=== PATIENT | female | born 1975 | race Caucasian/White ===

== ENCOUNTER 2017-06-01 17:43 | Emergency (ER) | payer OTHER ==
[2017-06-01 17:52] VITALS: TEMP 98
[2017-06-01] MEDS ORDERED: SODIUM CHLORIDE 0.9% 1,000 ML IV STA (18:38)
[2017-06-01] MEDS ORDERED: PANTOPRAZOLE 40 MG/10 ML VIAL IVP STA (18:38)
[2017-06-01] MEDS ORDERED: MAG HYDROX/AL HYDROX/SIMETH 30 ML, HYOSCYAMINE ELIXIR 10 ML, CIMETIDINE HCL 300 MG PO STA ×3 (18:38)
[2017-06-01] MEDS ORDERED: ONDANSETRON 4 MG/2 ML VIAL IVP STA (18:38)
--- NOTE | 2017-06-01 18:59 | ED ---
Abdominal Pain HPI - General Chief Complaint: Abdominal Pain Stated Complaint: Back/abd pain vomiting Time Seen by Provider: 06/01/17 18:23 Source: patient, RN notes reviewed, old records reviewed Mode of arrival: ambulatory Limitations: no limitations - History of Present Illness Initial Comments: 41-year-old female presents for instrumentation complaint of epigastric abdominal pain today. She's had some episodes of right shoulder pain and back pain earlier in the week. She states that she has had no fever or chills. No vomiting. She does have history of GERD and relates that she may have the onset of pain to the GERD. She states that when she is having the shoulder. She thought she should get a massage and should Motrin. She reports that this did not help with his right shoulder pain. Patient denies any family history of gallbladder disease that she is aware of. She reports that she feels that she has pressure in her epigastric region. - Related Data Home Medications Medication Instructions Recorded Confirmed Acetaminophen [Tylenol Extra 1,000 mg PO BID PRN 06/01/17 06/01/17 Strength] Ibuprofen [Motrin] 800 mg PO TID PRN 06/01/17 06/01/17 Ranitidine HCl [Zantac] 75 mg PO HS PRN 06/01/17 06/01/17 Venlafaxine HCl [Effexor XR] 225 mg PO DAILY 06/01/17 06/01/17 Allergies Allergy/AdvReac Type Severity Reaction Status Date / Time No Known Allergies Allergy Verified 06/01/17 18:50 Review of Systems ROS Statement: Those systems with pertinent positive or pertinent negative responses have been documented in the HPI. ROS Other: All systems not noted in ROS Statement are negative. Past Medical History Past Medical History: No Reported History Additional Past Medical History / Comment(s): uti/ kidney infections History of Any Multi-Drug Resistant Organisms: None Reported Past Surgical History: No Surgical Hx Reported Past Psychological History: Anxiety, Depression Smoking Status: Never smoker Past Alcohol Use History: Rare Past Drug Use History: None Reported General Exam - General Exam Comments Initial Comments: 41-year-old female. No distress. Limitations: no limitations General appearance: alert, in no apparent distress Head exam: Present: atraumatic, normocephalic, normal inspection Eye exam: Present: normal appearance, PERRL, EOMI. Absent: scleral icterus, conjunctival injection, periorbital swelling ENT exam: Present: normal exam, mucous membranes moist Neck exam: Present: normal inspection. Absent: tenderness, meningismus, lymphadenopathy Respiratory exam: Present: normal lung sounds bilaterally. Absent: respiratory distress, wheezes, rales, rhonchi, stridor Cardiovascular Exam: Present: regular rate, normal rhythm, normal heart sounds. Absent: systolic murmur, diastolic murmur, rubs, gallop, clicks GI/Abdominal exam: Present: soft, normal bowel sounds. Absent: distended, guarding, rebound, rigid Back exam: Present: normal inspection Neurological exam: Present: alert, oriented X3, CN II-XII intact Course Vital Signs 06/01/17 06/01/17 17:49 20:14 Temperature 98.0 F Pulse Rate 75 71 Respiratory 18 16 Rate Blood Pressure 128/71 114/57 O2 Sat by Pulse 100 100 Oximetry Medical Decision Making - Medical Decision Making This patient is a 42-year-old female presents emergency Department chief complaint of right upper quadrant abdominal pain read towards her back epigastric pain. Patient states that it's been a dull ache. She has no specific abdominal tenderness at this time. Patient was given IV fluids and laboratory obtained. She does have history of GERD. I did give the patient a GI cocktail. She does have some mild improvement with that. Patient states that after IV Toradol her pain is diminished as well. She did receive a gallbladder ultrasound. It is positive for multiple stones. Patient reported these results. At this time she'll be diagnosed with biliary colic. She has a normal liver enzymes. Normal white blood cell count. As the importance of changing her diet no greasy or fatty foods. With normal lab work and normal vital signs patient to follow up outpatient only with surgery. Given a referral for the on-call surgeons. Patient understands treatment plan will comply. Strict return parameters were discussed. - Lab Data Result diagrams: 06/01/17 18:45 06/01/17 18:45 Lab Results 06/01/17 06/01/17 06/01/17 Range/Units 18:45 18:45 18:45 WBC 5.3 (3.8-10.6) k/uL RBC 4.67 (3.80-5.40) m/uL Hgb 11.5 (11.4-16.0) gm/dL Hct 35.7 (34.0-46.0) % MCV 76.4 L (80.0-100.0) fL MCH 24.5 L (25.0-35.0) pg MCHC 32.1 (31.0-37.0) g/dL RDW 14.4 (11.5-15.5) % Plt Count 387 (150-450) k/uL Neutrophils % 52 % Lymphocytes % 41 % Monocytes % 5 % Eosinophils % 0 % Basophils % 1 % Neutrophils # 2.7 (1.3-7.7) k/uL Lymphocytes # 2.1 (1.0-4.8) k/uL Monocytes # 0.3 (0-1.0) k/uL Eosinophils # 0.0 (0-0.7) k/uL Basophils # 0.0 (0-0.2) k/uL Hypochromasia Slight Sodium 140 (137-145) mmol/L Potassium 3.9 (3.5-5.1) mmol/L Chloride 103 (98-107) mmol/L Carbon Dioxide 23 (22-30) mmol/L Anion Gap 14 mmol/L BUN 9 (7-17) mg/dL Creatinine 0.77 (0.52-1.04) mg/dL Est GFR (CKD-EPI)AfAm >90 (>60 ml/min/1.73 sqM) Est GFR (CKD-EPI)NonAf >90 (>60 ml/min/1.73 sqM) Glucose 79 (74-99) mg/dL Calcium 9.6 (8.4-10.2) mg/dL Total Bilirubin 0.3 (0.2-1.3) mg/dL AST 16 (14-36) U/L ALT 27 (9-52) U/L Alkaline Phosphatase 61 (38-126) U/L Total Protein 7.4 (6.3-8.2) g/dL Albumin 4.4 (3.5-5.0) g/dL Amylase 54 (30-110) U/L Lipase 37 (23-300) U/L Urine Color Light Yellow Urine Appearance Cloudy H (Clear) Urine pH 5.0 (5.0-8.0) Ur Specific [place] 1.010 (1.001-1.035) Urine Protein Negative (Negative) Urine Glucose (UA) Negative (Negative) Urine Ketones Trace H (Negative) Urine Blood Negative (Negative) Urine Nitrite Negative (Negative) Urine Bilirubin Negative (Negative) Urine Urobilinogen <2.0 (<2.0) mg/dL Ur Leukocyte Esterase Trace H (Negative) Urine RBC 1 (0-5) /hpf Urine WBC 3 (0-5) /hpf Ur Squamous Epith Cells 5 H (0-4) /hpf Urine Bacteria Occasional H (None) /hpf Urine Mucus Rare H (None) /hpf Urine Yeast (Budding) Occasional H (None) /hpf - Radiology Data Radiology results: report reviewed The gallbladder shows multiple polyps seen along the anterior wall some mobile stones within the next borderline wall thickening. There are gallstones or gallbladder polyps. No evidence of dilated ducts. Disposition Clinical Impression: Biliary colic, Gallbladder polyp Disposition: HOME SELF-CARE Condition: Good Instructions: Biliary Colic (ED) Additional Instructions: Patient is a follow-up with surgeon within the next 2-3 days. Patient should avoid fatty greasy foods. Return to emergency department promptly any fever or chills or unable to tolerate any foods or liquids. Referrals: Lisa Lu MD [Primary Care Provider] - 1-2 days Tracy Torrez DO [Doctor of Osteopathic Medicine] - 1-2 days Jimmy Altman MD [STAFF PHYSICIAN] - 1-2 days Time of Disposition: 20:14
[2017-06-01 19:15] LABS: Basophils % (A) 1 %; Eosinophils % (A) 0 %; HCT 35.7 % (34.0-46.0); HGB 11.5 gm/dL (11.4-16.0); Hypochromasia Slight; Lymphocytes # (A) 2.1 k/uL (1.0-4.8); Lymphocytes % (A) 41 %; MCH 24.5 pg (25.0-35.0); MCHC 32.1 g/dL (31.0-37.0); MCV 76.4 fL (80.0-100.0); Mean Platelet Volume 7.1; Monocytes # (A) 0.3 k/uL (0-1.0); Monocytes % (A) 5 %; Neutrophils # (A) 2.7 k/uL (1.3-7.7); Neutrophils % (A) 52 %; Platelet Count 387 k/uL (150-450); RBC 4.67 m/uL (3.80-5.40); RDW 14.4 % (11.5-15.5); WBC 5.3 k/uL (3.8-10.6)
[2017-06-01 19:25] LABS: ALT 27 U/L (9-52); AST 16 U/L (14-36); Albumin 4.4 g/dL (3.5-5.0); Alkaline Phosphatase 61 U/L (38-126); Amylase 54 U/L (30-110); Anion Gap 14 mmol/L; Blood Urea Nitrogen 9 mg/dL (7-17); Calcium 9.6 mg/dL (8.4-10.2); Carbon Dioxide 23 mmol/L (22-30); Chloride 103 mmol/L (98-107); Glucose 79 mg/dL (74-99); Lipase 37 U/L (23-300); Potassium 3.9 mmol/L (3.5-5.1); Sodium 140 mmol/L (137-145); Total Bilirubin 0.3 mg/dL (0.2-1.3); Total Protein 7.4 g/dL (6.3-8.2)
[2017-06-01 19:29] LABS: Appearance,Urine Cloudy (Clear); Bacteria,Urine Occasional /hpf; Bilirubin,Urine Negative (Negative); Blood,Urine Negative (Negative); Budding Yeast,Urine Occasional /hpf; Color,Urine Light Yellow; Glucose,Urine (UA) Negative (Negative); Ketones,Urine Trace (Negative); Leukocyte Esterase,Urine Trace (Negative); Mucus,Urine Rare /hpf; Nitrite,Urine Negative (Negative); Protein,Urine Negative (Negative); RBC,Urine 1 /hpf (0-5); Squamous Epithelial Cell,Urine 5 /hpf (0-4); Urobilinogen,Urine <2.0 mg/dL (<2.0); WBC,Urine 3 /hpf (0-5)
--- NOTE | 2017-06-01 19:46 | US ---
EXAMINATION TYPE: US gallbladder DATE OF EXAM: 06/01/2017 COMPARISON: NONE CLINICAL HISTORY: Pain. acid reflux, abd pain EXAM MEASUREMENTS: Liver Length: 15.3 cm Gallbladder Wall: 0.3 cm CBD: 0.3 cm Right Kidney: 9.1 x 3.8 x 4.2 cm Pancreas: unable to see due to bowel gas Liver: intercostal imaging, wnl Gallbladder: multiple polyps seen along anterior wall, some mobile stones seen within neck, borderli ne wall thickening Evidence for sonographic Higuera's sign: no CBD: wnl Right Kidney: wnl No focal liver defect. IMPRESSION: There are gallstones and gallbladder polyps. No dilated ducts.
[2017-06-01 20:15] VITALS: BP 114/57; PULSE 71; RESP 16
== END 2017-06-01 20:28 | disposition home or self-care (01) ==
LOC: EC 17:43
DX: K80.70 Calculus of gallbladder and bile duct without cholecystitis without obstruction (principal); M25.511 Pain in right shoulder; F32.9 Major depressive disorder, single episode, unspecified; F41.9 Anxiety disorder, unspecified; Z79.899 Other long term (current) drug therapy
CPT/HCPCS: 99284; 96374; 96375; 96361 ×2; 36415; 80053; 82150; 83690; 85025; 81001; 76705; J2405; C9113

== ENCOUNTER → 2018-01-04 | Outpatient (CLI) | payer OTHER ==
--- NOTE | 2018-01-04 11:02 | FL ---
EXAMINATION TYPE: FL UGI air DATE OF EXAM: 01/04/2018 COMPARISON: NONE HISTORY: Acid reflux for 1.5 years with episodic vomiting estimated once per week, recently started o n reflux medication. TECHNIQUE: A double contrast UGI study is performed. A total of 50 seconds of fluoroscopic time is u tilized during procedure. 61 spot images are saved. FINDINGS: [employer] image of the abdomen shows no gross abnormality. The esophagus shows satisfactory motility and emptying into the stomach. No evidence of diverticulum or stricture noted. There is small to borderline moderate size sliding-type hiatal hernia identified during real-time performance. The stomach shows satisfactory distensibility, peristalsis, and mucosal folds. No evidence of any ma ss or ulcer disease. Several abscesses of gastroesophageal reflux up through distal one half of the e sophagus are noted during performance of study. The duodenal bulb, sweep, and proximal small bowel lo ops are unremarkable. IMPRESSION: Small sliding-type hiatal hernia with moderate gastroesophageal reflux.
== END ==
LOC: RADFLWHC 08:10
PROVIDERS: ATTEND Family Medicine
DX: K21.9 Gastro-esophageal reflux disease without esophagitis (principal); K44.9 Diaphragmatic hernia without obstruction or gangrene
CPT/HCPCS: 74246

== ENCOUNTER 2018-04-03 08:14 | Day surgery (SDC) | payer OTHER ==
[2018-03-30 09:02] VITALS: BMI 29.2
[~2018-04-03 08:14] MED LIST: LACTATED RINGERS 1,000 ML IV SCH; LIDOCAINE 1% 20 ML VIAL (10MG/ML) FOR IV START INTRADERMA PRN
[2018-04-03 08:45] VITALS: TEMP 98.7
[2018-04-03] MEDS ORDERED: LIDOCAINE 1% INJ 10MG/ML (20 ML MDV) ONE (09:18)
[2018-04-03] MEDS ORDERED: PROPOFOL 10 MG/ML 20 ML VIAL IV ONE (09:18)
--- NOTE | 2018-04-03 09:24 | P.GSHP ---
History of Present Illness H&P Date: 04/03/18 Chief Complaint: GERD This a 42-year-old female with history of GERD. Patient has had a previous esophagram shows evidence of a hiatal hernia and reflux. She also history of gallstones. Past Medical History Past Medical History: GERD/Reflux Additional Past Medical History / Comment(s): FREQ UTI/ kidney infections. CHOLELITHIASIS. HIATAL HERNIA History of Any Multi-Drug Resistant Organisms: None Reported Past Surgical History: No Surgical Hx Reported Additional Past Surgical History / Comment(s): NASAL POLYPS. Past Anesthesia/Blood Transfusion Reactions: No Reported Reaction Smoking Status: Never smoker - Past Family History Mother Family Medical History: No Reported History Medications and Allergies Home Medications Medication Instructions Recorded Confirmed Type Acetaminophen [Tylenol Extra 1,000 mg PO BID PRN 06/01/17 04/03/18 History Strength] Ranitidine HCl [Zantac] 75 mg PO DAILY PRN 06/01/17 04/03/18 History Venlafaxine HCl [Effexor XR] 225 mg PO HS 06/01/17 04/03/18 History Omeprazole [PriLOSEC] 40 mg PO DAILY 02/16/18 04/03/18 History Control 1 each PO DAILY 03/30/18 04/03/18 History Allergies Allergy/AdvReac Type Severity Reaction Status Date / Time No Known Allergies Allergy Verified 04/03/18 08:35 Surgical - Exam Vital Signs Temp Pulse Resp BP Pulse Ox 98.7 F 96 15 125/58 99 04/03/18 08:41 04/03/18 08:41 04/03/18 08:41 04/03/18 08:41 04/03/18 08:41 - General well developed, no distress - Eyes PERRL - ENT normal pinna - Neck no masses - Respiratory normal expansion - Cardiovascular Rhythm: regular - Abdomen Abdomen: soft, non tender Assessment and Plan Assessment: GERD. We'll perform EGD.
--- NOTE | 2018-04-03 09:34 | P.OP ---
Date of Procedure: 04/03/18 Preoperative Diagnosis: GERD Postoperative Diagnosis: Antral gastritis Hiatal hernia Mild esophagitis Procedure(s) Performed: EGD Anesthesia: MAC Surgeon: Jimmy Altman Pathology: other (Antrum, esophagus) Condition: stable Disposition: PACU Description of Procedure: The patient's placed on the endoscopy table in the lateral position. She received IV sedation. The gastroscope placed oropharynx and passed in the esophagus and into the stomach. Scope was then placed through the pylorus. The first and second portion of the duodenum appeared normal. Scope was then brought back the antrum this. Mildly inflamed. The scope was then retroflexed and the remainder of the stomach appeared normal. There was a moderate size hiatal hernia. The GE junction was at 38 cm. The distal esophagus appeared mildly inflamed a biopsies performed. The proximal esophagus appeared normal. Scope withdrawn for patient.
[2018-04-03 09:35] VITALS: RESP 16
[2018-04-03 09:50] VITALS: BP 110/75; PULSE 74
== END 2018-04-03 10:14 | disposition home or self-care (01) ==
LOC: ORWHC2ENDO 08:14
PROVIDERS: ATTEND Surgery
DX: K29.50 Unspecified chronic gastritis without bleeding (principal); K21.0 Gastro-esophageal reflux disease with esophagitis; K44.9 Diaphragmatic hernia without obstruction or gangrene; Z87.440 Personal history of urinary (tract) infections; Z79.899 Other long term (current) drug therapy; Z79.3 Long term (current) use of hormonal contraceptives
CPT/HCPCS: 81025; 88305; 43239; J2001; J2704

== ENCOUNTER 2018-04-18 06:44 | Day surgery (SDC) | payer OTHER ==
[2018-04-14 14:34] VITALS: BMI 29.2
[~2018-04-18 06:44] MED LIST changes: +DEXAMETHASONE SOD PHOSPHATE 10 MG/ML 1 ML VIAL IV ONE; +HEPARIN SODIUM,PORCINE 5,000 UNIT/ML 1 ML VIAL SQ ONE; +ONDANSETRON 4 MG/2 ML VIAL IVP ONE; +SCOPOLAMINE 1.5MG/72HR PATCH TRANSDERM ONE; +ceFAZolin IN SWFI 2 GM/20 ML SYRINGE IVP ONE
[2018-04-18 07:03] VITALS: RESP 16
[2018-04-18] MEDS ORDERED: BUPIVACAINE-EPI 0.5%-1:200,000 10 ML VIAL SQ ONE ×2 (07:50→08:24)
[2018-04-18] MEDS ORDERED: PROPOFOL 10 MG/ML 20 ML VIAL IV ONE (07:58)
[2018-04-18] MEDS ORDERED: VECURONIUM 10 MG VIAL IV ONE (07:58)
[2018-04-18] MEDS ORDERED: LIDOCAINE 1% INJ 10MG/ML (20 ML MDV) ONE (07:58)
[2018-04-18] MEDS ORDERED: fentaNYL (PF) 50 MCG/ML 2 ML AMP ONE (07:58)
[2018-04-18] MEDS ORDERED: ePHEDrine SULFATE/0.9% NACL/PF 50 MG/5 ML SYRINGE IV ONE (07:58)
[2018-04-18] MEDS ORDERED: SUCCINYLCHOLINE CHLORIDE 100 MG/5 ML SYR IV ONE (07:58)
[2018-04-18] MEDS ORDERED: MIDAZOLAM 2 MG/2 ML VIAL ONE (07:58)
--- NOTE | 2018-04-18 08:01 | P.GSHP ---
History of Present Illness H&P Date: 04/18/18 Chief Complaint: Right upper quadrant pain This a 42-year-old female who's had complete the right upper quadrant pain. Her recent ultrasound shows evidence of cholelithiasis and gallbladder wall polyps. She presents today for laparoscopic cholecystectomy. Past Medical History Past Medical History: GERD/Reflux Additional Past Medical History / Comment(s): FREQ UTI/ kidney infections. CHOLELITHIASIS. HIATAL HERNIA History of Any Multi-Drug Resistant Organisms: None Reported Past Surgical History: No Surgical Hx Reported Additional Past Surgical History / Comment(s): NASAL POLYPS. Past Anesthesia/Blood Transfusion Reactions: No Reported Reaction Smoking Status: Never smoker - Past Family History Mother Family Medical History: No Reported History Medications and Allergies Home Medications Medication Instructions Recorded Confirmed Type Ranitidine HCl [Zantac] 75 mg PO DAILY PRN 06/01/17 04/18/18 History Venlafaxine HCl [Effexor XR] 225 mg PO HS 06/01/17 04/18/18 History Omeprazole [PriLOSEC] 40 mg PO DAILY 02/16/18 04/18/18 History Control 1 each PO DAILY 03/30/18 04/18/18 History Allergies Allergy/AdvReac Type Severity Reaction Status Date / Time No Known Allergies Allergy Verified 04/14/18 14:30 Surgical - Exam Vital Signs Temp Pulse Resp BP Pulse Ox 97.4 F L 109 H 16 119/64 99 04/18/18 06:59 04/18/18 06:59 04/18/18 06:59 04/18/18 06:59 04/18/18 06:59 - General well developed, well nourished, no distress - Eyes PERRL - ENT normal pinna - Neck no masses - Respiratory normal expansion - Cardiovascular Rhythm: regular - Abdomen Abdomen: soft, non tender Assessment and Plan Assessment: Cholelithiasis Gallbladder wall polyp We'll perform laparoscopic cholecystectomy.
--- NOTE | 2018-04-18 08:41 | P.OP ---
Date of Procedure: 04/18/18 Preoperative Diagnosis: Cholecystitis Postoperative Diagnosis: Cholecystitis Procedure(s) Performed: Laparoscopic cholecystectomy Anesthesia: SHANE Surgeon: Jimmy lAtman Estimated Blood Loss (ml): 5 Pathology: other (Gallbladder) Condition: stable Disposition: PACU Description of Procedure: The patient was placed on the operating table. The patient received a general endotracheal tube anesthesia. The patients abdomen was prepped and draped in the usual sterile fashion. Through an infraumbilical stab incision, the fascia of the anterior abdominal wall was grasped with a pair of Kochers and then the Veress needle was placed in the peritoneal cavity. Position of the Veress needle was confirmed with positive drop test. The abdomen was then insufflated. After adequate insufflation, the 10 mm trocar was placed in the peritoneal cavity. Following this the laparoscope was placed in the peritoneal cavity. The patient was placed in the head-up, right side up position and then a 5 mm trocar was placed in the right lateral and right subcostal position under direct visualization. A 8 mm trocar was placed in the epigastric position. The gallbladder was grasped in the fundus and infundibulum. Traction on the gallbladder was placed in the lateral and the cephalad positions. The triangle of Calot was visualized.. The cystic duct was bluntly dissected until the union of the cystic duct and common bile duct was seen. The cystic duct was then divided and sealed with the Harmonic scissors. A PDS Endoloop was then placed throughout the cystic duct stump. The cystic artery divided and sealed with the Harmonic scissors. The gallbladder was then removed from the liver bed using Harmonic scissors. The gallbladder was then extracted through the epigastric port site. Operative field was checked for any bleeding spots and Harmonic scissors was used to coagulate the liver bed. The abdomen was irrigated. The trocars were removed. The skin was closed using interrupted 3-0 Vicryl suture. Dermabond dressing were applied. The patient tolerated the procedure well.
[2018-04-18] MEDS: HYDROmorphone 0.5 MG/0.5 ML SYRINGE IVP PRN ×4 (09:05→09:35)
[2018-04-18 09:08] VITALS: TEMP 97.6
[2018-04-18] MEDS ORDERED: LACTATED RINGERS 1,000 ML IV ONE (09:47)
[2018-04-18] MEDS ORDERED: HYDROcodone/APAP 7.5-325MG 1 EACH TAB PO ONE (10:03)
[2018-04-18 10:39] VITALS: BP 111/74; PULSE 95
== END 2018-04-18 11:24 | disposition home or self-care (01) ==
LOC: OR 06:44
PROVIDERS: ATTEND Surgery
DX: K80.12 Calculus of gallbladder with acute and chronic cholecystitis without obstruction (principal); K44.9 Diaphragmatic hernia without obstruction or gangrene; K21.9 Gastro-esophageal reflux disease without esophagitis; F32.9 Major depressive disorder, single episode, unspecified; Z87.440 Personal history of urinary (tract) infections; Z79.899 Other long term (current) drug therapy; Z79.3 Long term (current) use of hormonal contraceptives
CPT/HCPCS: 81025; 88304; 47562; J2250; J1644; J1100; J2405; J2001; J3010; J0330; J2704; J1170; J0690

== ENCOUNTER 2018-05-08 09:17 | Observation (INO) | payer OTHER ==
[2018-05-04 11:16] VITALS: BMI 29.2
[~2018-05-08 09:17] MED LIST changes: +HYDROmorphone 0.5 MG/0.5 ML SYRINGE IVP PRN; -LACTATED RINGERS 1,000 ML IV SCH; +MIDAZOLAM (PF) 2 MG/2 ML VIAL IV PRN; -SCOPOLAMINE 1.5MG/72HR PATCH TRANSDERM ONE; -ceFAZolin IN SWFI 2 GM/20 ML SYRINGE IVP ONE; +fentaNYL (PF) 50 MCG/ML 2 ML AMP IV PRN
[2018-05-08] MEDS: LACTATED RINGERS 1,000 ML IV SCH ×2 (09:59→14:18)
[2018-05-08] MEDS ORDERED: ONDANSETRON 4 MG/2 ML VIAL IVP ONE (10:06)
[2018-05-08] MEDS ORDERED: DEXAMETHASONE SOD PHOSPHATE 10 MG/ML 1 ML VIAL IV ONE (10:07)
--- NOTE | 2018-05-08 10:43 | P.GSHP ---
History of Present Illness H&P Date: 05/08/18 Chief Complaint: GERD This is a 42-year-old female who's had lifetime problems of GERD. Patient refractory to medical therapy. The patient has had long-standing problems with reflux esophagitis. The patient underwent recent EGD is found have evidence of esophagitis. Patient has been well informed on the procedure of laparoscopic Berny fundoplication. The patient is aware the risk of the conversion to the open procedure, risk of injury to the stomach, liver and spleen. The patient is also a risk of recurrent GERD and dysphagia symptoms. The patient understands there is a postoperative diet of full liquids for 2 weeks after surgery. Past Medical History Past Medical History: GERD/Reflux Additional Past Medical History / Comment(s): FREQ UTI/ kidney infections, hiatal hernia History of Any Multi-Drug Resistant Organisms: None Reported Past Surgical History: Cholecystectomy Additional Past Surgical History / Comment(s): NASAL POLYPS, lap [place] 04-18-18 Past Anesthesia/Blood Transfusion Reactions: No Reported Reaction Smoking Status: Never smoker - Past Family History Mother Family Medical History: No Reported History Medications and Allergies Home Medications Medication Instructions Recorded Confirmed Type Ranitidine HCl [Zantac] 75 mg PO DAILY PRN 06/01/17 05/08/18 History Venlafaxine HCl [Effexor XR] 225 mg PO HS 06/01/17 05/08/18 History Omeprazole [PriLOSEC] 40 mg PO DAILY 02/16/18 05/08/18 History Allergies Allergy/AdvReac Type Severity Reaction Status Date / Time No Known Allergies Allergy Verified 05/08/18 09:58 Surgical - Exam Vital Signs Temp Pulse Resp BP Pulse Ox 98.4 F 67 16 105/54 98 05/08/18 09:47 05/08/18 09:47 05/08/18 09:47 05/08/18 09:47 05/08/18 09:47 - General well developed, well nourished, no distress - Eyes PERRL - ENT normal pinna - Neck no masses - Respiratory normal expansion - Cardiovascular Rhythm: regular - Abdomen Abdomen: soft, non tender Assessment and Plan Assessment: GERD. We'll perform laparoscopic Berny fundoplication
[2018-05-08] MEDS: ceFAZolin IN SWFI 2 GM/20 ML SYRINGE IVP ONE ×2 (11:00→11:22)
[2018-05-08] MEDS ORDERED: NEOSTIGMINE 1 MG/ML 10 ML VIAL ONE (11:01)
[2018-05-08] MEDS ORDERED: PROPOFOL 10 MG/ML 20 ML VIAL IV ONE (11:01)
[2018-05-08] MEDS ORDERED: MIDAZOLAM 2 MG/2 ML VIAL ONE (11:01)
[2018-05-08] MEDS ORDERED: GLYCOPYRROLATE 0.2 MG/ML 2 ML VIAL ONE (11:01)
[2018-05-08] MEDS ORDERED: BUPIVACAINE-EPI 0.5%-1:200,000 10 ML VIAL SQ ONE ×2 (11:01→11:32)
[2018-05-08] MEDS ORDERED: SUCCINYLCHOLINE CHLORIDE 100 MG/5 ML SYR IV ONE (11:01)
[2018-05-08] MEDS ORDERED: LIDOCAINE 1% INJ 10MG/ML (20 ML MDV) ONE (11:01)
[2018-05-08] MEDS ORDERED: ROCURONIUM BROMIDE 10 MG/ML 10 ML VIAL IV ONE (11:01)
[2018-05-08] MEDS ORDERED: fentaNYL (PF) 50 MCG/ML 2 ML AMP ONE (11:01)
[2018-05-08] MEDS ORDERED: LACTATED RINGERS 1,000 ML IV ONE (11:53)
[2018-05-08] MEDS ORDERED: ONDANSETRON 4 MG/2 ML VIAL IVP PRN (12:07)
--- NOTE | 2018-05-08 12:11 | P.OP ---
Date of Procedure: 05/08/18 Preoperative Diagnosis: GERD Postoperative Diagnosis: GERD Procedure(s) Performed: Laparoscopic Berny fundoplication Anesthesia: SHANE Surgeon: Jimmy Altman Estimated Blood Loss (ml): 5 Pathology: none sent Condition: stable Disposition: PACU Description of Procedure: Patelhe patient was placed on the operating table in the supine position. The patient received general anesthesia. And was placed in dorsal lithotomy position. The patient was prepped and draped in the usual sterile fashion. The skin incision sites were anesthetized with 1% local Xylocaine. The skin was incised in the left periumbilical area and then using a blade less 5 mm trocar under direct visualization panel cavity was entered. After adequate insufflation the laparoscope was then placed into the peritoneal cavity. Next a 5 mm trochars placed in the right epigastric position. Another 5 millimeter trocar the right lateral position. Another 5 millimeter trocar in the left lateral position a 5 mm trocar is placed in the left epigastric position. And then the initial 5 mm trocar was exchanged for a 10 mm trocar. The left lateral lobe liver was retracted. The hernia was seen. The crural defect was then dissected using the Harmonic scissors device. A 360 crural dissection was performed the esophagus stomach was reduced back into the peritoneal Cavity. The crural defect was then closed using 2-0 Ethibond suture. Next the fundus of the stomach was mobilized using the [place] scissors device. and then a 58-Pashto bougie dilator was placed oropharynx passed into the esophagus and stomach the fundal plication wrap was then performed by grasping the fundus posteriorly and bringing it around the esophagus and stomach fundoplication was then performed using 2-0 Ethibond suture. Care was taken that the fundal location rested over top of the intra-abdominal esophagus. There was no injury seen to the stomach or esophagus. The dilator was then withdrawn. The abdomen was irrigated there is no bleeding seen. The trochars were then withdrawn and then skin incision sites were closed using 3-0 Monocryl suture Steri-Strips are applied. Patient thought procedure well and sent to recovery room in stable condition.
[2018-05-08] MEDS ORDERED: HYDROmorphone 1 MG/ML 1 ML SYRINGE IVP ONE ×2 (12:20→12:26)
[2018-05-08] MEDS ORDERED: MEPERIDINE 50 MG/ML SYRINGE IVP ONE (12:35)
[2018-05-08] MEDS: D5-0.45% NACL WITH KCL 20MEQ/L 1,000 ML IV SCH ×2 (14:20→20:17)
--- NOTE | 2018-05-08 15:59 | FL ---
EXAMINATION TYPE: FL esophagus cervic/pharynx DATE OF EXAM: 05/08/2018 LIMITED UGI-ESOPHAGRAM: CLINICAL HISTORY: Anderson fundoplication TECHNIQUE: Limited esophagram is performed utilizing 20 oz of Omnipaque 350. A total of 32 seconds o f fluoroscopic time was utilized during procedure. Images: 10 FINDINGS: The patient swallowed contrast without difficulty or delay. Esophageal peristalsis and mo tility are within normal limits. There is good flow of contrast along the diaphragmatic hiatus into t he stomach, there is no evidence of contrast extravasation to suggest leak. Only moderate hesitancy p assing through the Anderson fundoplication is evident. No persistent hiatal hernia is seen. IMPRESSION: No evidence of leak or significant obstruction status post Anderson fundoplication surgery earlier today.
[2018-05-08] MEDS: HYDROmorphone 1 MG/ML 1 ML SYRINGE IVP PRN ×2 (16:17→20:16)
[2018-05-08] MEDS: METOCLOPRAMIDE 5 MG/ML 2 ML VIAL IVP SCH (17:09)
[2018-05-08] MEDS ORDERED: VENLAFAXINE HCL ER 75 MG CAP PO SCH (21:00)
[2018-05-08] MEDS: FAMOTIDINE 20 MG/2 ML VIAL IV SCH (21:14)
[2018-05-09] MEDS: METOCLOPRAMIDE 5 MG/ML 2 ML VIAL IVP SCH ×3 (00:07→08:50)
[2018-05-09] MEDS: HYDROmorphone 1 MG/ML 1 ML SYRINGE IVP PRN (02:56)
[2018-05-09] MEDS: D5-0.45% NACL WITH KCL 20MEQ/L 1,000 ML IV SCH ×2 (06:38→08:21)
[2018-05-09] MEDS: FAMOTIDINE 20 MG/2 ML VIAL IV SCH (08:21)
[2018-05-09] MEDS ORDERED: HYDROcodone/APAP 7.5-325MG 1 EACH TAB PO PRN (08:38)
[2018-05-09] MEDS: LACTATED RINGERS 1,000 ML IV SCH (08:49)
[2018-05-09 08:50] VITALS: BP 104/70; PULSE 90; RESP 16; TEMP 98.2
[2018-05-09] MEDS ORDERED: ENOXAPARIN 40 MG/0.4 ML SYRINGE SQ SCH (09:00)
--- NOTE | 2018-05-09 10:54 | P.DS ---
Providers Date of admission: 05/08/18 21:46 Expected date of discharge: 05/09/18 Attending physician: Jimmy Altman Consults: 05/08/18 12:07 Consult Physician Routine Consulting Provider: Mike Altman Consult Reason/Comments: Medical management Do you want consulting provider notified?: Yes Primary care physician: Mike Altman Hospital Course: 42-year-old female who underwent elective Berny fundoplication on . The patient is well postoperatively without any complications. esophagram was completed which was negative for evidence of leak or obstruction. Patient has been tolerating clear liquids. Her pain is tolerable. She has been up ambulating. She is stable for discharge home today. Please see EMR for further hospital course details. DISCHARGE DIAGNOSIS: 1. GERD 2. S/P Berny fundoplication Nurse practitioner note has been reviewed by physician. Signing provider agrees with the documented findings, assessment, and plan of care. Patient Condition at Discharge: Stable Plan - Discharge Summary Discharge Rx Participant: No New Discharge Prescriptions: New Docusate [Colace] 100 mg PO BID #30 capsule HYDROcodone/APAP 7.5-325MG [[place] 7.5-325] 1 tab PO Q4H PRN 3 Days #18 tab PRN Reason: Pain No Action Ranitidine HCl [Zantac] 75 mg PO DAILY PRN PRN Reason: Heartburn Venlafaxine HCl [Effexor XR] 225 mg PO HS Omeprazole [PriLOSEC] 40 mg PO DAILY Discharge Medication List Ranitidine HCl [Zantac] 75 mg PO DAILY PRN 06/01/17 [History] Venlafaxine HCl [Effexor XR] 225 mg PO HS 06/01/17 [History] Omeprazole [PriLOSEC] 40 mg PO DAILY 02/16/18 [History] Docusate [Colace] 100 mg PO BID #30 capsule 05/09/18 [Rx] HYDROcodone/APAP 7.5-325MG [[place] 7.5-325] 1 tab PO Q4H PRN 3 Days #18 tab 05/09 [Rx] Follow up Appointment(s)/Referral(s): Jimmy Altman MD [STAFF PHYSICIAN] - 05/23/18 1:45 pm Activity/Diet/Wound Care/Special Instructions: Continue diet as directed by physician until seen by physician. fluids are always encouraged.No driving while taking [place] No lifting/pushing/pullling over 10 pounds you may shower. No soaking or tub baths Very light activity until you are reevaluated at your follow up appointment with your surgeon. Call physician with any questions comments concerns worsening returning symptoms, fever 101.1, pain not controlled by pain medication prescribed, pus or smelly drainage coming from incision sites, not tolerating diet or fluids. Discharge Disposition: HOME SELF-CARE
--- NOTE | 2018-05-09 15:10 | PN ---
PROGRESS NOTE DATE OF SERVICE: 05/09/2018. CHIEF COMPLAINT: GERD, status post Berny fundoplasty. HISTORY OF PRESENT ILLNESS: This lady is doing well. She is going home this morning. She is not complaining of any chest pain, abdominal pain, fever and chills, nausea, vomiting, etc. PHYSICAL EXAM: Chest is clear. The cardiac exam is normal and the abdomen is soft, nontender. IMPRESSION: 1. Status post Berny fundoplasty. 2. Depression. PLAN: Home today and will see her in the office in several days for followup. MMODL / IJN: [id number] /
--- NOTE | 2018-05-09 15:12 | CONS ---
CONSULTATION CHIEF COMPLAINT: GERD. HISTORY OF PRESENT ILLNESS: This is another admission for this 42-year-old white female who was in for a Berny fundoplasty. She is otherwise healthy. She takes antidepressants has been using Zantac and Prilosec. REVIEW OF SYSTEMS: She has had no neurologic problems, headaches, change in vision or hearing, cough, hemoptysis, shortness of breath, chest pain, hypertension, murmurs, rheumatic fever, orthopnea, PND, hematemesis, melena, hematochezia, jaundice, hepatitis, hematuria, frequency, urgency, renal failure, diabetes, etc. Past medical history, family history, personal and social history are otherwise unremarkable and noncontributory. She is not allergic to any medication. She takes venlafaxine 225 mg once a day, Estarylla, Zantac 150 twice a day, Prilosec 20 mg twice a day. The remainder of her history is unremarkable. She does not smoke. PHYSICAL EXAM: Blood pressure is 120/80, pulse 86, respirations 14, she is afebrile. In general she appeared well developed, well nourished, in no acute distress. Skin color is normal, skin is warm, dry. Lymph nodes are not enlarged. Head, ears, eyes, nose, mouth, and throat are normal. Neck veins are not distended. Thyroid is not enlarged. Chest is clear. The cardiac exam is normal. Abdomen is soft, nontender. Extremities are normal. Neurologically she is intact. IMPRESSION: 1. GERD. 2. Major depression. RECOMMENDATIONS: None. MMODL / IJN: [id number] /
== END 2018-05-09 10:10 | disposition home or self-care (01) ==
LOC: OR 09:17 → 6PED 12:02 → OR 21:26 → 6PED 21:46
PROVIDERS: ADMIT Surgery; ATTEND Surgery
DX: K21.0 Gastro-esophageal reflux disease with esophagitis (principal); K44.9 Diaphragmatic hernia without obstruction or gangrene; Z90.49 Acquired absence of other specified parts of digestive tract; Z79.899 Other long term (current) drug therapy; Z87.440 Personal history of urinary (tract) infections; Z87.09 Personal history of other diseases of the respiratory system
CPT/HCPCS: 81025; 74210; 43280; G0378 ×2; J1644; J1100; J2765 ×2; J2175; J2405; J1650; J1170 ×2; J0690; Q9967

== ENCOUNTER 2021-08-28 09:59 | Emergency (ER) | payer OTHER ==
[2021-08-28 10:07] VITALS: RESP 16; TEMP 97.8
[2021-08-28] MEDS ORDERED: SODIUM CHLORIDE 0.9% 1,000 ML IV STA (10:23)
[2021-08-28] MEDS ORDERED: KETOROLAC 15 MG/ML 1 ML VIAL IVP STA (10:23)
--- NOTE | 2021-08-28 10:28 | ED ---
General Adult HPI - General Chief complaint: Back Pain/Injury Stated complaint: Back Pain Time Seen by Provider: 08/28/21 10:15 Source: patient, RN notes reviewed, old records reviewed Mode of arrival: wheelchair Limitations: no limitations - History of Present Illness Initial comments: 46-year-old well-appearing female presents to the emergency room with complaints of lower abdominal pain that awoke her at 3:30 this morning. Patient states that the pain wraps around into her lower back and goes down to bilateral upper legs. She denies any fevers, no nausea vomiting or diarrhea. Last normal bowel movement yesterday. She states that she has never had this type of pain before. She denies any injury. She denies any history of cancers, no drug abuse. -: hour(s) (7) Location: back (Low backlower), abdomen (Bilateral lower abdominal), left, right, lower extremity (upper legs) Severity scale (1-10): 10 Consistency: constant Improves with: immobilization Worsens with: movement Associated Symptoms: denies other symptoms Treatments Prior to Arrival: none - Related Data Home Medications Medication Instructions Recorded Confirmed Venlafaxine HCl [Effexor XR] 225 mg PO HS 06/01/17 05/08/18 raNITIdine HCL [Zantac] 75 mg PO DAILY PRN 06/01/17 05/08/18 Omeprazole [PriLOSEC] 40 mg PO DAILY 02/16/18 05/08/18 Previous Rx's Medication Instructions Recorded Docusate [Colace] 100 mg PO BID #30 capsule 05/09/18 HYDROcodone/APAP 7.5-325MG [Dingess 1 tab PO Q4H PRN 3 Days #18 tab 05/09/18 7.5-325] Allergies Allergy/AdvReac Type Severity Reaction Status Date / Time No Known Allergies Allergy Verified 08/28/21 10:05 Review of Systems ROS Statement: Those systems with pertinent positive or pertinent negative responses have been documented in the HPI. ROS Other: All systems not noted in ROS Statement are negative. Past Medical History Past Medical History: GERD/Reflux Additional Past Medical History / Comment(s): FREQ UTI/ kidney infections, hiatal hernia History of Any Multi-Drug Resistant Organisms: None Reported Past Surgical History: Cholecystectomy, Hernia Repair Additional Past Surgical History / Comment(s): NASAL POLYPS, lap [place] 04-18-18 Past Anesthesia/Blood Transfusion Reactions: No Reported Reaction Past Psychological History: Anxiety, Depression Smoking Status: Never smoker Past Alcohol Use History: Daily Past Drug Use History: Marijuana - Past Family History Mother Family Medical History: No Reported History General Exam Limitations: no limitations General appearance: alert, in no apparent distress Head exam: Present: atraumatic, normocephalic Eye exam: Absent: scleral icterus, conjunctival injection ENT exam: Present: mucous membranes moist Neck exam: Present: full ROM. Absent: tenderness, meningismus Respiratory exam: Absent: respiratory distress, accessory muscle use Cardiovascular Exam: Present: regular rate GI/Abdominal exam: Present: soft, tenderness (Bilateral lower quadrants), normal bowel sounds. Absent: distended Extremities exam: Present: normal inspection, normal capillary refill. Absent: pedal edema, calf tenderness Left Upper Leg exam: Present: full ROM. Absent: tenderness, swelling Knee exam: Present: full ROM. Absent: tenderness, swelling Lower Leg exam: Present: full ROM. Absent: tenderness, swelling, erythema, palpable cord, Homans' sign Ankle exam: Absent: tenderness, swelling Foot/Toe exam: Present: full ROM. Absent: tenderness, swelling Neurovascular tendon exam: Present: no vascular compromise. Absent: pulse deficit, abnormal cap refill, extremity cold to touch, pallor, foot drop Right Hip exam: Absent: tenderness, swelling Upper Leg exam: Absent: tenderness, swelling Knee exam: Absent: tenderness, swelling Lower Leg exam: Absent: tenderness, swelling, erythema, palpable cord, Homans' sign Ankle exam: Absent: tenderness, swelling Neurovascular tendon exam: Present: no vascular compromise. Absent: pulse deficit, abnormal cap refill, extremity cold to touch, pallor, foot drop Back exam: Present: normal inspection, full ROM, tenderness, paraspinal tenderne ss (Lumbar sacral spine). Absent: CVA tenderness (R), CVA tenderness (L), vertebral tenderness, rash noted Expanded Back exam: Absent: saddle anesthesia Back exam: Positive Straight Leg Raise: Left, Right Neurological exam: Present: alert, oriented X3 Psychiatric exam: Present: normal affect, normal mood Skin exam: Present: warm, dry, intact, normal color. Absent: rash, cyanosis, diaphoretic, erythema, petechiae, pallor Course Vital Signs 08/28/21 08/28/21 10:06 12:46 Temperature 97.8 F Pulse Rate 82 81 Respiratory 16 16 Rate Blood Pressure 107/66 101/71 O2 Sat by Pulse 100 97 Oximetry Medical Decision Making - Medical Decision Making CT shows mildly prominent fluid-filled small bowel loops consistent with mild enteritis. There is also a noted 2.2 cm functional cyst of the right ovary. There is no evidence of leukocytosis, hemoglobin and hematocrit are stable. Electrolytes are unremarkable. Vital signs stable. Patient has been afebrile. Patient's symptoms are likely related to enteritis. Patient does have history of GERD, hiatal hernia, cholecystectomy, anxiety and depression. She is a nonsmoker. She'll be directed to increase her fluid intake and follow-up with her primary care doctor next week. Return to the emergency room with any new or concerning symptoms including fevers, persistent nausea vomiting or increased pain. Patient and family member agreeable to this plan of care. Case discussed with Dr. Black - Lab Data Result diagrams: 08/28/21 10:40 08/28/21 10:40 Lab Results 08/28/21 08/28/21 08/28/21 Range/Units 10:40 10:40 10:40 WBC 5.6 (3.8-10.6) k/uL RBC 5.02 (3.80-5.40) m/uL Hgb 11.1 L (11.4-16.0) gm/dL Hct 35.9 (34.0-46.0) % MCV 71.6 L (80.0-100.0) fL MCH 22.0 L (25.0-35.0) pg MCHC 30.8 L (31.0-37.0) g/dL RDW 18.4 H (11.5-15.5) % Plt Count 349 (150-450) k/uL MPV 7.9 Neutrophils % 55 % Lymphocytes % 39 % Monocytes % 3 % Eosinophils % 1 % Basophils % 1 % Neutrophils # 3.1 (1.3-7.7) k/uL Lymphocytes # 2.2 (1.0-4.8) k/uL Monocytes # 0.2 (0-1.0) k/uL Eosinophils # 0.0 (0-0.7) k/uL Basophils # 0.0 (0-0.2) k/uL Hypochromasia Marked Anisocytosis Slight Microcytosis Marked PT 10.0 (9.0-12.0) sec INR 0.9 (<1.2) APTT 22.1 (22.0-30.0) sec Sodium 138 (137-145) mmol/L Potassium 5.2 H (3.5-5.1) mmol/L Chloride 105 (98-107) mmol/L Carbon Dioxide 21 L (22-30) mmol/L Anion Gap 12 mmol/L BUN 19 H (7-17) mg/dL Creatinine 0.71 (0.52-1.04) mg/dL Est GFR (CKD-EPI)AfAm >90 (>60 ml/min/1.73 sqM) Est GFR (CKD-EPI)NonAf >90 (>60 ml/min/1.73 sqM) Glucose 106 H (74-99) mg/dL Plasma Lactic Acid Jan (0.7-2.0) mmol/L Calcium 9.2 (8.4-10.2) mg/dL Total Bilirubin 0.5 (0.2-1.3) mg/dL AST 29 (14-36) U/L ALT 14 (4-34) U/L Alkaline Phosphatase 77 (38-126) U/L Total Protein 8.0 (6.3-8.2) g/dL Albumin 4.6 (3.5-5.0) g/dL Amylase 53 (30-110) U/L Lipase 23 (23-300) U/L Urine Color Urine Appearance (Clear) Urine pH (5.0-8.0) Ur Specific [place] (1.001-1.035) Urine Protein (Negative) Urine Glucose (UA) (Negative) Urine Ketones (Negative) Urine Blood (Negative) Urine Nitrite (Negative) Urine Bilirubin (Negative) Urine Urobilinogen (<2.0) mg/dL Ur Leukocyte Esterase (Negative) Urine RBC (0-5) /hpf Urine WBC (0-5) /hpf Ur Squamous Epith Cells (0-4) /hpf Urine Mucus (None) /hpf Urine HCG, Qual (Not Detectd) 08/28/21 08/28/21 08/28/21 Range/Units 10:40 11:10 11:10 WBC (3.8-10.6) k/uL RBC (3.80-5.40) m/uL Hgb (11.4-16.0) gm/dL Hct (34.0-46.0) % MCV (80.0-100.0) fL MCH (25.0-35.0) pg MCHC (31.0-37.0) g/dL RDW (11.5-15.5) % Plt Count (150-450) k/uL MPV Neutrophils % % Lymphocytes % % Monocytes % % Eosinophils % % Basophils % % Neutrophils # (1.3-7.7) k/uL Lymphocytes # (1.0-4.8) k/uL Monocytes # (0-1.0) k/uL Eosinophils # (0-0.7) k/uL Basophils # (0-0.2) k/uL Hypochromasia Anisocytosis Microcytosis PT (9.0-12.0) sec INR (<1.2) APTT (22.0-30.0) sec Sodium (137-145) mmol/L Potassium (3.5-5.1) mmol/L Chloride (98-107) mmol/L Carbon Dioxide (22-30) mmol/L Anion Gap mmol/L BUN (7-17) mg/dL Creatinine (0.52-1.04) mg/dL Est GFR (CKD-EPI)AfAm (>60 ml/min/1.73 sqM) Est GFR (CKD-EPI)NonAf (>60 ml/min/1.73 sqM) Glucose (74-99) mg/dL Plasma Lactic Acid Jan 1.4 (0.7-2.0) mmol/L Calcium (8.4-10.2) mg/dL Total Bilirubin (0.2-1.3) mg/dL AST (14-36) U/L ALT (4-34) U/L Alkaline Phosphatase (38-126) U/L Total Protein (6.3-8.2) g/dL Albumin (3.5-5.0) g/dL Amylase (30-110) U/L Lipase (23-300) U/L Urine Color Yellow Urine Appearance Cloudy H (Clear) Urine pH 6.0 (5.0-8.0) Ur Specific [place] 1.033 (1.001-1.035) Urine Protein 1+ H (Negative) Urine Glucose (UA) Negative (Negative) Urine Ketones Negative (Negative) Urine Blood Negative (Negative) Urine Nitrite Negative (Negative) Urine Bilirubin Negative (Negative) Urine Urobilinogen <2.0 (<2.0) mg/dL Ur Leukocyte Esterase Negative (Negative) Urine RBC 4 (0-5) /hpf Urine WBC 4 (0-5) /hpf Ur Squamous Epith Cells 43 H (0-4) /hpf Urine Mucus Many H (None) /hpf Urine HCG, Qual Not Detected (Not Detectd) Disposition Clinical Impression: Abdominal pain Disposition: HOME SELF-CARE Condition: Good Instructions (If sedation given, give patient instructions): Acute Low Back Pain (ED), Abdominal Pain (ED) Additional Instructions: Increase your fluid intake and take Tylenol and/or Motrin as needed for any pain or discomfort. Follow-up with the primary care doctor next week. Return to the emergency room with any new or concerning symptoms including persistent nausea vomiting, or fevers. Is patient prescribed a controlled substance at d/c from ED?: No Referrals: Mike Altman MD [Primary Care Provider] - 1-2 days Time of Disposition: 12:38
[2021-08-28 10:53] LABS: Anisocytosis Slight; Basophils % (A) 1 %; Eosinophils % (A) 1 %; HCT 35.9 % (34.0-46.0); HGB 11.1 gm/dL (11.4-16.0); Hypochromasia Marked; Lymphocytes # (A) 2.2 k/uL (1.0-4.8); Lymphocytes % (A) 39 %; MCHC 30.8 g/dL (31.0-37.0); MCV 71.6 fL (80.0-100.0); Mean Platelet Volume 7.9; Microcytosis Marked; Monocytes # (A) 0.2 k/uL (0-1.0); Monocytes % (A) 3 %; Neutrophils # (A) 3.1 k/uL (1.3-7.7); Neutrophils % (A) 55 %; Platelet Count 349 k/uL (150-450); RBC 5.02 m/uL (3.80-5.40); RDW 18.4 % (11.5-15.5); WBC 5.6 k/uL (3.8-10.6)
[2021-08-28 11:02] LABS: INR 0.9 (<1.2); Partial Thromboplastin Time 22.1 sec (22.0-30.0)
[2021-08-28 11:17] LABS: ALT 14 U/L (4-34); African American GFR (CKD) >90 (>60 ml/min/1.73 sqM); Albumin 4.6 g/dL (3.5-5.0); Amylase 53 U/L (30-110); Anion Gap 12 mmol/L; Blood Urea Nitrogen 19 mg/dL (7-17); Calcium 9.2 mg/dL (8.4-10.2); Carbon Dioxide 21 mmol/L (22-30); Chloride 105 mmol/L (98-107); Glucose 106 mg/dL (74-99); Lipase 23 U/L (23-300); Non-African American GFR(CKD) >90 (>60 ml/min/1.73 sqM); Sodium 138 mmol/L (137-145); Total Bilirubin 0.5 mg/dL (0.2-1.3)
[2021-08-28 11:20] LABS: Potassium 5.2 mmol/L (3.5-5.1)
[2021-08-28 11:21] LABS: AST 29 U/L (14-36); Alkaline Phosphatase 77 U/L (38-126)
[2021-08-28 11:39] LABS: Appearance,Urine Cloudy (Clear); Bilirubin,Urine Negative (Negative); Blood,Urine Negative (Negative); Color,Urine Yellow; Glucose,Urine (UA) Negative (Negative); Ketones,Urine Negative (Negative); Leukocyte Esterase,Urine Negative (Negative); Mucus,Urine Many /hpf; Nitrite,Urine Negative (Negative); Protein,Urine 1+ (Negative); RBC,Urine 4 /hpf (0-5); Specific Gravity,Urine 1.033 (1.001-1.035); Squamous Epithelial Cell,Urine 43 /hpf (0-4); Urobilinogen,Urine <2.0 mg/dL (<2.0); WBC,Urine 4 /hpf (0-5)
--- NOTE | 2021-08-28 12:12 | CT ---
EXAMINATION TYPE: CT abdomen pelvis w con DATE OF EXAM: 08/28/2021 COMPARISON: NONE HISTORY: 46-year-old female Abdominal and back pain TECHNIQUE: Contiguous axial scanning of the abdomen and pelvis following administration of 100 ml Iso treva 300 IV contrast. Delayed images through the kidneys and coronal/sagittal reconstructions perform ed. CT DLP: 820.2 mGycm Automated exposure control for dose reduction was used. FINDINGS: Heart normal size without pericardial effusion. Postsurgical change of Darrell fundoplicatio n. Lung bases clear without pleural effusion. No focal liver lesion or biliary ductal dilatation. Portal venous system is patent. Gallbladder surgically absent. Adrenal glands, left kidney, spleen, and pancreas within normal limits. Tiny 5 mm cortical hypodensity mid pole right kidney too small for accurate CT characterization, like ly cyst. No dilated small bowel, free fluid, or free air. Some scattered prominent mid abdominal small bowel loops probably transient. Small fatty umbilical hernia measuring 2.3 cm. Normal appendix. Mild stool burden, particularly on the right side of the colon. No pericolonic inflammatory change. M ildly redundant sigmoid colon. No mesenteric or retroperitoneal lymphadenopathy. Bladder collapsed. Uterus anteverted. Both ovaries are visualized. There is a 2.2 cm dominant follicl e or functional cyst within the right ovary. No abnormal fluid collection in the pelvis or pelvic lym phadenopathy. Bones: No osseous destructive process. IMPRESSION: 1. SOME MILDLY PROMINENT FLUID-FILLED SMALL BOWEL LOOPS IN THE MID ABDOMEN MAY BE TRANSIENT OR COULD REPRESENT A MILD ENTERITIS. 2. STATUS POST DARRELL FUNDOPLICATION AND CHOLECYSTECTOMY. A 2.3 CM SMALL FATTY UMBILICAL HERNIA. 3. A 2.2 CM DOMINANT FOLLICLE OR FUNCTIONAL CYST OF THE RIGHT OVARY.
[2021-08-28 12:48] VITALS: BP 101/71; PULSE 81
== END 2021-08-28 12:47 | disposition home or self-care (01) ==
LOC: EC 09:59
DX: R10.30 Lower abdominal pain, unspecified (principal); K21.9 Gastro-esophageal reflux disease without esophagitis; Z79.83 Long term (current) use of bisphosphonates
CPT/HCPCS: 36415; 80053; 82150; 83605; 83690; 85025; 85610; 85730; 81001; 81025; 74177; 99284; 96374; 96361; J1885; Q9967

== ENCOUNTER → 2024-03-07 | Outpatient (CLI) | payer OTHER ==
--- NOTE | 2024-03-07 15:42 | US ---
EXAMINATION TYPE: US pelvis complete transvag DATE OF EXAM: 03/07/2024 COMPARISON: CT: 08/28/21 CLINICAL INDICATION: Female, 48 years old with history of N83.209 OVARIAN CYSTS; ovarian cyst TECHNIQUE: Transvaginal (TV) and Transabdominal (TA) . Transabdominal grayscale sonographic images of the pelvis were acquired. Transvaginal sonographic im ages were medically necessary to better assess the following anatomy: ovaries Doppler imaging: Not performed. FINDINGS: Date of LMP: unknown EXAM MEASUREMENTS: Uterus: 10.6 x 7.4 x 5.4 cm Endometrial Stripe: 1.3 cm Right Ovary: 3.0 x 2.5 x 1.4 cm Left Ovary: 3.3 x 2.8 x 2.1 cm 1. Uterus: Anteverted wnl 2. Endometrium: wnl 3. Right Ovary: dominant follicle seen 4. Left Ovary: dominant follicle seen 5. Bilateral Adnexa: wnl 6. Posterior cul-de-sac: wnl IMPRESSION: 1. No evidence for acute process. 2. Endometrium within normal limits for thickness. 3. Dominant Bilateral follicles. No cysts identified. [facility], , 03/07/2024 3:40 PM
== END | disposition home or self-care (01) ==
LOC: RADUSWWP 14:45
PROVIDERS: ATTEND Family Medicine
DX: N83.209 Unspecified ovarian cyst, unspecified side (principal)
CPT/HCPCS: 76830; 76856

== ENCOUNTER → 2024-04-19 | Outpatient (CLI) | payer OTHER ==
[2024-04-19 10:53] LABS: Basophils # (A) 0.05 X 10*3/uL (0.00-0.10); Basophils % (A) 1.2 %; Eosinophils # (A) 0 X 10*3/uL (0.04-0.35); Eosinophils % (A) 0 %; HCT 37.7 % (37.2-46.3); HGB 11.3 g/dL (12.0-15.0); Lymphocytes # (A) 2.31 X 10*3/uL (0.90-5.00); Lymphocytes % (A) 53.3 %; MCH 23.2 pg (27.0-32.0); MCV 77.4 FL (80.0-97.0); Mean Platelet Volume 10.6 FL (9.5-12.2); Monocytes # (A) 0.32 X 10*3/uL (0.20-1.00); Monocytes % (A) 7.4 %; NRBC Per 100 WBC 0 X 10*3/uL (0.00-0.01); Neutrophils # (A) 1.64 X 10*3/uL (1.80-7.70); Neutrophils % (A) 37.9 %; Platelet Count 388 X 10*3/uL (140-440); RBC 4.87 X 10*6/uL (4.10-5.20); RDW 17.6 % (11.5-14.5); WBC 4.33 X 10*3/uL (4.50-10.00)
== END | disposition home or self-care (01) ==
LOC: LABPAT 07:27
PROVIDERS: ATTEND Obstetrics & Gynecology
DX: Z01.818 Encounter for other preprocedural examination (principal); N93.8 Other specified abnormal uterine and vaginal bleeding
CPT/HCPCS: 85025

== ENCOUNTER 2024-04-20 08:40 | Day surgery (SDC) | payer OTHER ==
--- NOTE | 2024-04-18 08:12 | HP ---
HISTORY AND PHYSICAL PROPOSED DATE OF SURGERY: 04/20/2024. HISTORY OF PRESENT ILLNESS: The patient is a 48-year-old woman who was referred for evaluation of dysfunctional uterine bleeding. She had a relatively recent onset of significant irregularity and significantly heavy cycles lasting as long as 3 weeks at a time. She has passed a few clots and has moderate heaviness. She reported interest in endometrial ablation as her partner has a vasectomy. She additionally has a known MTHFR gene mutation, making her a poor candidate containing products and denies any interest in using an intrauterine device. PAST MEDICAL HISTORY: Significant for history of anxiety/mood disorders. She apparently also has a history of esophagitis and some cardiovascular concerns. PAST SURGICAL HISTORY: Significant only for cholecystectomy and nasal polypectomy. There were no anesthetic concerns. OBSTETRICAL HISTORY: Not recorded. GYNECOLOGIC HISTORY: Unremarkable except as noted in History of Present Illness. FAMILY HISTORY: Noncontributory. SOCIAL HISTORY: The patient is , but has a significant other. She is a nonsmoker. Denies any significant other social concerns of consequence. CURRENT MEDICATIONS: Include: 1. Venlafaxine ER 150 mg daily. 2. Iron 325 mg daily. 3. Vitamin D daily. ALLERGIES: No known drug allergies. REVIEW OF SYSTEMS: Confined to History of Present Illness. PHYSICAL EXAMINATION: VITAL SIGNS: Stable. The patient is afebrile. GENERAL: This is a well-developed, well-nourished, white female in no acute distress. HEART: Has a regular rhythm and rate without murmur. LUNGS: Clear to auscultation bilaterally in all nielsen. ABDOMEN: Nondistended, has normoactive bowel sounds, soft, nontender, without any palpable masses, hepatosplenomegaly, or hernias. EXTREMITIES: Without any cyanosis, clubbing, or edema and are nontender to palpation bilaterally. PELVIC: Demonstrates normal external genitalia and BUS with normal vaginal mucosa and cervix. There is no cervical motion tenderness. The uterus is approximately 5-6 weeks in size, mid plane, mobile, nontender, normal shape. The adnexa are normal and nontender without mass bilaterally. Endometrial biopsy done during the pelvic examination demonstrated benign findings and sounded to 9 cm. ASSESSMENT AND PLAN: Dysfunctional uterine bleeding: The multiple options for treatment were discussed and the patient has reportedly has denied anything other than definitive treatment with diagnostic hysteroscopy with NovaSure endometrial ablation. The risks and complications of the procedure have been thoroughly discussed including the risk for bleeding, bleeding requiring transfusion, infection, and injury to local structures to include uterine perforation, Asherman syndrome, as well as subsequent hematometra. She has understood all this and agreed to proceed. We are scheduled for the morning of April 20 for the procedures as outlined above. MMODL / IJN: [id number] /
[2024-04-18 10:43] VITALS: BMI 29.2
[~2024-04-20 08:40] MED LIST changes: -DEXAMETHASONE SOD PHOSPHATE 10 MG/ML 1 ML VIAL IV ONE; -HEPARIN SODIUM,PORCINE 5,000 UNIT/ML 1 ML VIAL SQ ONE; -HYDROmorphone 0.5 MG/0.5 ML SYRINGE IVP PRN; -LIDOCAINE 1% 20 ML VIAL (10MG/ML) FOR IV START INTRADERMA PRN; -MIDAZOLAM (PF) 2 MG/2 ML VIAL IV PRN; +MIDAZOLAM 2 MG/2 ML VIAL IV PRN; -ONDANSETRON 4 MG/2 ML VIAL IVP ONE; +Pre Op ABX Message 1 EACH MISC MISCELLANE ONE; +SCOPOLAMINE 1 MG/72 HR PATCH TRANSDERM ONE; -fentaNYL (PF) 50 MCG/ML 2 ML AMP IV PRN
[2024-04-20] MEDS: DEXAMETHASONE SOD PHOSPHATE 4 MG/ML 1 ML VIAL IV ONE (09:17)
[2024-04-20] MEDS: ONDANSETRON 4 MG/2 ML VIAL IVP ONE (09:17)
[2024-04-20] MEDS: LACTATED RINGERS 1,000 ML IV SCH (09:17)
[2024-04-20] MEDS: IV FLUID CONTINUATION 1,000 ML IV ONE (09:25)
[2024-04-20] MEDS ORDERED: fentaNYL (PF) 50 MCG/ML 2 ML AMP ONE (09:28)
[2024-04-20] MEDS ORDERED: LIDOCAINE 1% INJ 10MG/ML (20 ML MDV) ONE (09:28)
[2024-04-20] MEDS ORDERED: PROPOFOL 10 MG/ML 20 ML VIAL IV ONE (09:28)
[2024-04-20] MEDS ORDERED: MIDAZOLAM 2 MG/2 ML VIAL ONE (09:28)
[2024-04-20] MEDS ORDERED: METOCLOPRAMIDE 5 MG/ML 2 ML VIAL IVP PRN (09:39)
[2024-04-20] MEDS ORDERED: diphenhydrAMINE 50 MG/ML 1 ML VIAL IVP PRN (09:39)
[2024-04-20] MEDS ORDERED: ACETAMINOPHEN TAB 325 MG TAB PO PRN (09:39)
[2024-04-20] MEDS ORDERED: diphenhydrAMINE 25 MG CAP PO PRN (09:39)
[2024-04-20] MEDS ORDERED: ONDANSETRON 4 MG/2 ML VIAL IVP PRN (09:39)
[2024-04-20] MEDS ORDERED: IBUPROFEN 600 MG TAB PO PRN (09:39)
[2024-04-20] MEDS ORDERED: SIMETHICONE 80 MG CHEWABLE PO PRN (09:39)
[2024-04-20] MEDS ORDERED: LACTATED RINGERS 1,000 ML IV SCH (09:45)
--- NOTE | 2024-04-20 10:07 | P.OP ---
Date of Procedure: 04/20/24 Preoperative Diagnosis: #1. Dysfunctional uterine bleeding Postoperative Diagnosis: Same Procedure(s) Performed: #1. Diagnostic hysteroscopy #2. NovaSure endometrial ablation Anesthesia: other (General By LMA) Surgeon: Juan Antonio Dozier Estimated Blood Loss (ml): 5 IV fluids (ml): 200 Urine output (ml): 5 Pathology: none sent Condition: stable Disposition: PACU Operative Findings: Preoperative pelvic examination demonstrated a 4 to 5-week midplane mobile normal shaped uterus with normal adnexa bilaterally. Intraoperatively, the uterus sounded to approximately 9 cm with a cervical length of approximately 3.5 cm. Using the hysteroscope, the bilateral tubal ostia were seen and there was no pathology throughout the endometrial cavity. The settings for the NovaSure tool were a length of 5.5 cm, a width of 4.1 cm for a total power of 124 W. After passing the cavity check, a total run time of 53 seconds was carried out after which time the base unit read "procedure complete." The postprocedural result appeared to be excellent. The patient is a borderline candidate for vaginal hysterectomy should it become necessary in the future. Description of Procedure: The patient was prepped and draped in usual fashion after general anesthesia was administered by the anesthesiologist. A weighted speculum was placed and the bladder was drained of approximately 5 cc of clear scotty urine. The anterior lip of the cervix was grasped with a single-tooth tenaculum and the uterus sounded to 9 cm with a cervical length of approximately 3.5 cm as noted above. Serial dilation was carried out to admit the diagnostic hysteroscope which was placed into the cavity and the endometrium distended with normal saline. The findings were normal as noted above with the bilateral tubal ostia seen and no pathology noted. The hysteroscope was set aside in favor of the NovaSure tool which was placed into the intrauterine cavity, opened, and seated well. The settings are as noted above with a length of 5.5 cm, a width of 4.1 cm for a total power of 124 W. The cavity check was attempted and passed without difficulty. The tool was enabled and the run was started. After a total run time of 53 seconds, the base unit read "procedure complete." The 2 was closed, removed, and discarded. The diagnostic hysteroscope was replaced and the findings appear to be excellent as noted above. All instrumentation was removed and there was no ongoing bleeding from either the cervix or from the tenaculum site. Estimated blood loss for the case was approximately 5 mL or less. There were no complications. All sponge, instrument, and needle counts were correct. The patient tolerated the procedure well and proceeded to the recovery room in stable condition.
[2024-04-20 10:19] VITALS: TEMP 97.3
[2024-04-20] MEDS: HYDROmorphone 0.5 MG/0.5 ML SYRINGE IVP PRN (10:19)
[2024-04-20] MEDS: KETOROLAC 15 MG/ML 1 ML VIAL IVP PRN (10:19)
[2024-04-20 12:05] VITALS: BP 127/84; PULSE 84; RESP 18
== END 2024-04-20 12:07 | disposition home or self-care (01) ==
LOC: OR 08:40
PROVIDERS: ATTEND Obstetrics & Gynecology
DX: N93.8 Other specified abnormal uterine and vaginal bleeding (principal); E72.12 Methylenetetrahydrofolate reductase deficiency; F60.3 Borderline personality disorder; F32.A Depression, unspecified; F41.9 Anxiety disorder, unspecified; Z79.899 Other long term (current) drug therapy
CPT/HCPCS: 81025; 58563; J2250; J1100; J2405; J2003; J3010; J1885; J2704; J1171